=== PATIENT | female | born 1995 | race Caucasian/White ===

== ENCOUNTER 2020-09-23 11:31 | Inpatient (IN) | payer OTHER ==
[2020-09-23] MEDS ORDERED: hydrALAZINE 20 MG/ML VIAL SLOW IVP PRN ×2 (12:28→13:25)
[2020-09-23] MEDS ORDERED: Ondansetron PF 4 MG/2 ML Vial IVP PRN ×2 (13:25→19:33)
[2020-09-23] MEDS ORDERED: Lidocaine 1% (PF) 30 ML VIAL SC PRN (13:25)
[2020-09-23] MEDS ORDERED: Acetaminophen 500 MG TAB PO PRN (13:25)
[2020-09-23] MEDS ORDERED: Promethazine HCl 25 MG/ML VIAL IM PRN ×2 (13:25→19:33)
[2020-09-23] MEDS ORDERED: Butorphanol Tartrate 1 MG/ML VIAL SLOW IVP PRN (13:25)
[2020-09-23] MEDS ORDERED: Docusate 100 MG CAP PO PRN (13:25)
[2020-09-23] MEDS ORDERED: Lactated Ringer's 1,000 ML IV SCH (13:30)
[2020-09-23] MEDS ORDERED: Penicillin G Potassium 5 MILL.UNITS in Sodium Chloride 0.9% 100 ML IVPB SCH (13:30)
[2020-09-23] MEDS ORDERED: Penicillin G Potassium 5 MILL.UNITS VIAL ONE (13:40)
[2020-09-23 13:56] VITALS: BMI 31.2
[2020-09-23 14:30] LABS: Hemoglobin 15.2 g/dL (12.0-15.5); Mean Corpuscular HGB CONC 33.9 g/dL (32.0-36.0); Mean Corpuscular Hemoglobin 32.5 pg (27.0-33.0); Mean Corpuscular Volume 95.7 fl (81.6-98.3); Mean Platelet Volume 10.9 fl (7.4-10.4); Platelet Count 147 10x3/uL (150-450); Red Blood Cell (RBC) Count 4.68 10x6/uL (3.90-5.03); White Blood Cell (WBC) Count 11.4 10x3/uL (3.5-10.5)
[2020-09-23 15:06] LABS: Hep B Surf Ag Non-Reactive S/CO (NonReactive); Syphilis Antibody Nonreactive (Nonreactive); Syphilis Antibody Index 0.02 S/CO (<1.00 Non-Reactive)
[2020-09-23 15:35] LABS: HBSAg Index 0.12 S/CO (0-0.99)
[2020-09-23] MEDS: Penicillin G 2.5 MILL.units 2.5 MILL.UNITS in Premix Bag 1 BAG IVPB SCH ×2 (18:15→22:02)
[2020-09-23] MEDS ORDERED: Fentanyl 4 mcg/Bup 0.1% Cadd 100 ML ONE (18:42)
[2020-09-23] MEDS ORDERED: Fentanyl 100 MCG/2 ML VIAL ONE (18:53)
[2020-09-23] MEDS ORDERED: ePHEDrine 50 MG/ML VIAL SLOW IVP PRN (19:33)
[2020-09-23] MEDS ORDERED: Acetaminophen 325 MG TAB PO PRN (19:33)
[2020-09-23] MEDS ORDERED: Naloxone HCl 0.4 mg/ml Vial IVP PRN ×2 (19:33)
[2020-09-23] MEDS ORDERED: Eucerin (Mineral Oil/Petrolatum,White) 30 gm Jar TOP PRN (19:33)
[2020-09-23] MEDS ORDERED: Lactated Ringer's 500 ML IV PRN (19:33)
[2020-09-23] MEDS ORDERED: diphenhydrAMINE 50 MG/ML VIAL IVP PRN (19:33)
[2020-09-23] MEDS ORDERED: Fentanyl 4 mcg/Bupivacaine 0.1% Cassette 100 ML EPIDURAL SCH (19:45)
[2020-09-23] MEDS ORDERED: Communication Order-Pharmacy FS SCH (19:45)
[2020-09-23] MEDS ORDERED: Terbutaline Sulfate 1 MG/ML VIAL SC SCH (21:15)
[2020-09-23] MEDS ORDERED: Misoprostol 200 MCG TAB ONE (23:38)
[2020-09-24] MEDS ORDERED: diphenhydrAMINE 25 MG CAP PO PRN (00:07)
[2020-09-24] MEDS ORDERED: HYDROcodone/Acetaminophen 5/325 mg Tablet PO PRN ×2 (00:07)
[2020-09-24] MEDS ORDERED: Preparation H Ointment 28 GM TUBE PR PRN (00:07)
[2020-09-24] MEDS ORDERED: Bisacodyl 10 MG SUPP PR PRN (00:07)
[2020-09-24] MEDS ORDERED: Milk Of Magnesia 30 ML UDCUP PO PRN (00:07)
[2020-09-24] MEDS ORDERED: hydrALAZINE 20 MG/ML VIAL SLOW IVP PRN (00:07)
[2020-09-24] MEDS ORDERED: Misoprostol 200 MCG TAB VAG PRN (00:07)
[2020-09-24] MEDS ORDERED: Ondansetron PF 4 MG/2 ML Vial IVP PRN (00:07)
[2020-09-24] MEDS ORDERED: Witch Hazel-Glycerin 1 EACH JAR TOP PRN (00:10)
[2020-09-24] MEDS ORDERED: NS w/ Oxytocin 30 units 500 ML IV SCH (00:15)
[2020-09-24] MEDS: NS w/ Oxytocin 30 units 500 ML IV SCH ×2 (00:19→02:05)
[2020-09-24] MEDS: Ibuprofen 800 MG TAB PO SCH ×3 (05:13→20:39)
[2020-09-24 07:55] LABS: Hemoglobin 12.8 g/dL (12.0-15.5); Mean Corpuscular HGB CONC 34.1 g/dL (32.0-36.0); Mean Corpuscular Hemoglobin 33.1 pg (27.0-33.0); Mean Corpuscular Volume 96.9 fl (81.6-98.3); Mean Platelet Volume 10.7 fl (7.4-10.4); Platelet Count 180 10x3/uL (150-450); Red Blood Cell (RBC) Count 3.87 10x6/uL (3.90-5.03); White Blood Cell (WBC) Count 17.3 10x3/uL (3.5-10.5)
[2020-09-24] MEDS: Docusate Calcium (SURFAK) 240 MG CAP PO SCH ×2 (08:34→20:39)
[2020-09-24] MEDS: Ferrous Sulfate 325 MG TAB PO SCH ×2 (08:37→16:15)
[2020-09-24] MEDS ORDERED: Adacel (T-DAP) 0.5 ML SYRINGE IM ONE (09:00)
[2020-09-24 14:22] LABS: SARS-CoV-2 PCR NAA for Saliva Not Detected (NotDetected)
[2020-09-25] MEDS: Ibuprofen 800 MG TAB PO SCH (05:05)
[2020-09-25 07:57] VITALS: BP 107/55; TEMP 98.3
[2020-09-25] MEDS: Ferrous Sulfate 325 MG TAB PO SCH (08:52)
[2020-09-25] MEDS: Docusate Calcium (SURFAK) 240 MG CAP PO SCH (08:53)
== END 2020-09-25 13:25 | disposition home or self-care (01) | DRG 807 ==
LOC: CSHLD/OP 11:31 → CSHLD 13:30 → CSHPP 09-24 02:20
PROVIDERS: ADMIT Obstetrics & Gynecology; ATTEND Obstetrics & Gynecology
PROC: 10E0XZZ Delivery of Products of Conception, External Approach (ICD-10-PCS; principal; 2020-09-24)
DX: O99.824 Streptococcus B carrier state complicating childbirth (principal); Z37.0 Single live birth; Z3A.39 39 weeks gestation of pregnancy; Z20.822 Contact with and (suspected) exposure to COVID-19
CPT/HCPCS: 36415; 51702; 85027; 86780; 86850; 86900; 86901; 87340; 87635; 99285; J2001; J2540; J2590; J3105; J3490; U0003; U0005

== ENCOUNTER 2022-01-13 16:05 | Day surgery (SDC) | payer SELFPAY ==
[2022-01-13] MEDS ORDERED: hydrALAZINE 20 MG/ML VIAL SLOW IVP PRN (19:10)
== END 2022-01-13 18:45 | disposition home health service (06) ==
LOC: CSHLD/OP 16:05
PROVIDERS: ATTEND Obstetrics & Gynecology
DX: O47.03 False labor before 37 completed weeks of gestation, third trimester (principal); O99.513 Diseases of the respiratory system complicating pregnancy, third trimester; J45.909 Unspecified asthma, uncomplicated; O26.893 Other specified pregnancy related conditions, third trimester; R10.2 Pelvic and perineal pain; M54.50 Low back pain, unspecified; Z3A.29 29 weeks gestation of pregnancy
CPT/HCPCS: 99281

== ENCOUNTER 2022-04-01 07:05 | Inpatient (IN) | payer OTHER, SELFPAY ==
[2022-04-01] MEDS ORDERED: NS w/ Oxytocin 30 units 500 ML ONE (07:46)
[2022-04-01] MEDS ORDERED: Ondansetron PF 4 MG/2 ML Vial IVP PRN ×3 (07:46→18:05)
[2022-04-01] MEDS ORDERED: Methylergonovine 0.2 MG/ML VIAL IM PRN ×2 (07:46→18:05)
[2022-04-01] MEDS ORDERED: Acetaminophen 500 MG TAB PO PRN (07:46)
[2022-04-01] MEDS ORDERED: hydrALAZINE 20 MG/ML VIAL SLOW IVP PRN ×2 (07:46→18:05)
[2022-04-01] MEDS ORDERED: Lidocaine 1% (PF) 30 ML VIAL SC PRN (07:46)
[2022-04-01] MEDS ORDERED: Ibuprofen 800 MG TAB PO PRN (07:46)
[2022-04-01] MEDS ORDERED: Butorphanol Tartrate 1 MG/ML VIAL SLOW IVP PRN (07:46)
[2022-04-01] MEDS ORDERED: Promethazine HCl 25 MG/ML VIAL IM PRN ×2 (07:46→08:12)
[2022-04-01] MEDS ORDERED: Penicillin G Potassium 5 MILL.UNITS VIAL ONE (07:46)
[2022-04-01] MEDS ORDERED: Carboprost 250 MCG/ML AMP IM PRN (07:46)
[2022-04-01] MEDS ORDERED: Misoprostol 200 MCG TAB PR PRN (07:46)
[2022-04-01] MEDS ORDERED: Fentanyl 2 mcg/Bup 0.1% Cadd 100 ML ONE (07:55)
[2022-04-01] MEDS ORDERED: Penicillin G Potassium 5 MILL.UNITS in Sodium Chloride 0.9% 100 ML IVPB SCH (08:00)
[2022-04-01] MEDS ORDERED: Penicillin G 2.5 MILL.units 2.5 MILL.UNITS in Premix Bag 1 BAG IVPB SCH (08:00)
[2022-04-01] MEDS: Lactated Ringer's 1,000 ML IV SCH ×2 (08:00→10:00)
[2022-04-01] MEDS ORDERED: NS w/ Oxytocin 30 units 500 ML IV SCH ×3 (08:00→18:05)
[2022-04-01 08:02] LABS: Hemoglobin 13.6 g/dL (12.0-15.5); Mean Corpuscular HGB CONC 34.7 g/dL (32.0-36.0); Mean Corpuscular Hemoglobin 33.2 pg (27.0-33.0); Mean Corpuscular Volume 95.6 fl (81.6-98.3); Platelet Count 201 10x3/uL (150-450); RBC Distribution Width 12.8 % (11.5-14.5); White Blood Cell (WBC) Count 10.4 10x3/uL (3.5-10.5)
[2022-04-01] MEDS ORDERED: Naloxone HCl 0.4 mg/ml Vial IVP PRN ×2 (08:12)
[2022-04-01] MEDS ORDERED: ePHEDrine Sulfate 50 MG/10 ML VIAL SLOW IVP PRN (08:12)
[2022-04-01] MEDS ORDERED: diphenhydrAMINE 50 MG/ML VIAL IVP PRN (08:12)
[2022-04-01] MEDS ORDERED: Moisturizing Cream (Eucerin) 113 GM JAR TOP PRN (08:12)
[2022-04-01] MEDS ORDERED: Acetaminophen 325 MG TAB PO PRN (08:12)
[2022-04-01] MEDS ORDERED: Lactated Ringer's 500 ML IV PRN (08:12)
[2022-04-01] MEDS ORDERED: Communication Order-Pharmacy FS SCH (08:15)
[2022-04-01] MEDS ORDERED: Fentanyl 2 mcg/Bupivacaine 0.1% Cassette 100 ML EPIDURAL SCH (08:15)
[2022-04-01 08:40] LABS: Syphilis Antibody Nonreactive (Nonreactive); Syphilis Antibody Index 0.03 S/CO (<1.00 Non-Reactive)
[2022-04-01 08:53] LABS: HBSAg Index 0.19 S/CO (0-0.99); Hep B Surf Ag Non-Reactive S/CO (NonReactive)
[2022-04-01 10:06] LABS: SARS-CoV-2 NAA Rapid Test Not Detected (NotDetected)
[2022-04-01 10:12] VITALS: BMI 30.2
[2022-04-01] MEDS ORDERED: Boostrix 0.5 ML (Tdap) VIAL (>/=7 yrs of age) IM ONE (18:05)
[2022-04-01] MEDS ORDERED: Misoprostol 200 MCG TAB VAG PRN (18:05)
[2022-04-01] MEDS ORDERED: Milk Of Magnesia 30 ML UDCUP PO PRN (18:05)
[2022-04-01] MEDS ORDERED: Benzocaine-Menthol 82.5 ML CAN TOP PRN (18:05)
[2022-04-01] MEDS ORDERED: HYDROcodone/Acetaminophen 5/325 mg Tablet PO PRN ×2 (18:05)
[2022-04-01] MEDS ORDERED: Lanolin Ointment 7 GM TUBE TOP PRN (18:05)
[2022-04-01] MEDS ORDERED: Bisacodyl 10 MG SUPP PR PRN (18:05)
[2022-04-01] MEDS ORDERED: Ferrous Sulfate 325 MG TAB PO SCH (18:30)
[2022-04-01] MEDS ORDERED: Bupivacaine/Epinephrine 0.25% 30 ML VIAL ONE (19:07)
[2022-04-01] MEDS: Docusate 100 MG CAP PO SCH (20:27)
[2022-04-01] MEDS ORDERED: Ibuprofen 800 MG TAB PO SCH (22:00)
[2022-04-02] MEDS: Ibuprofen 800 MG TAB PO SCH ×2 (04:40→11:20)
[2022-04-02] MEDS ORDERED: Ferrous Sulfate 325 MG TAB PO SCH (08:00)
[2022-04-02] MEDS: Docusate 100 MG CAP PO SCH (08:55)
[2022-04-02] MEDS ORDERED: Prenatal Vitamin 1 TAB PO SCH (09:00)
[2022-04-02 16:14] VITALS: BP 96/60; TEMP 97.9
== END 2022-04-02 17:15 | disposition home or self-care (01) | DRG 807 ==
LOC: CSHLD/OP 07:05 → CSHLD 07:46 → CSHPP 17:15
PROVIDERS: ADMIT Obstetrics & Gynecology; ATTEND Obstetrics & Gynecology
PROC: 10E0XZZ Delivery of Products of Conception, External Approach (ICD-10-PCS; principal; 2022-04-01)
PROC: 0KQM0ZZ Repair Perineum Muscle, Open Approach (ICD-10-PCS; 2022-04-01)
DX: O99.824 Streptococcus B carrier state complicating childbirth (principal); Z37.0 Single live birth; Z20.822 Contact with and (suspected) exposure to COVID-19; Z3A.40 40 weeks gestation of pregnancy; O70.1 Second degree perineal laceration during delivery; O69.81X0 Labor and delivery complicated by cord around neck, without compression, not applicable or unspecified
CPT/HCPCS: 51702; 85027; 86780; 86850; 86900; 86901; 87340; 99285; J2540; J3490; J7120; U0002